=== PATIENT | female | born 1995 | race Caucasian/White ===

== ENCOUNTER 2025-08-30 09:16 | Outpatient (CLI) | payer MEDICAID ==
[~2025-08-30 09:16] MED LIST: PRED10TA PO
--- NOTE | 2025-08-30 11:07 | RADIOLOGY REPORT ---
PROCEDURE: MRI OF THE BRAIN WITHOUT CONTRAST. CLINICAL INDICATION: HEADACHE, UNSPECIFIED TECHNIQUE: Multiplanar, multi sequence MRI of the brain was performed without intravenous contrast. COMPARISON: None FINDINGS: The signal characteristics of the brain parenchyma is within normal limits. There are no areas of restricted diffusion to suggest acute infarct. No evidence of space occupying mass lesion, extra-axial collections or hemorrhage is noted. The ventricles, sulci and basal cisterns are intact. There is no signal abnormality in the posterior fossa. The paranasal sinuses and mastoid air cells are well pneumatized. The orbits and nasopharynx are intact. The osseous structures are intact. The vessels of the skull base demonstrate signal void consistent with patency. IMPRESSION: 1. No acute intracranial abnormality.
== END 2025-08-30 23:59 | disposition home or self-care (01) ==
LOC: MRI02 09:16
PROVIDERS: ATTEND Family Medicine
DX: R51.9 Headache, unspecified (principal)
CPT/HCPCS: 70551